=== PATIENT | male | born 1995 | race Caucasian/White ===

== ENCOUNTER 2024-07-11 00:34 | Inpatient (IN) | payer MEDICARE, SELFPAY ==
--- OUTSIDE RECORDS SUMMARY | 2024-07-11 00:38 | XMS_ITS | Encounter Summary ---
Author Organization [facility] Address [address] [place] [address] Care Team Providers Care Special Services Coordinator Name Role Phone Unavailable Primary Care Provider Unavailabl e Encounter Details Date Type Department Care Team (Late st Contact Info) Description 09/18/2023 Lab Requisition [address] [phone] Gabriella Dorantes MD [address] [place] [address] Schizophrenia, unspecified (HCC) Social History Tobacco Use Types Packs/Day Years Used Date Smoking Tobacco: Never Assessed Sex and Gender Information Value Date Recorded Sex Assigned at Not on file Legal Sex Male 11:24 AM EDT Gender Identity Not on file Sexual Orientation Not on file documented as of this encounter Plan of Treatment Not on file documented as of this encounter Procedures Procedure Name Priority Date/Time Associated Diagnosis Comments CLOZARIL PROFILE, WBC/SIMONA Routine 09/18/2023 6:53 AM EDT Schizophrenia, unspecified (HCC) documented in this encounter Results * Clozaril Profile, WBC/Simona (09/18/2023 6:53 AM EDT) WBC 8.0 4.8 - 11.2 10*3/??L 09/18/2023 10:21 AM EDT [facility] Neut # 4.5 2.2 - 9.5 10*3/??L 09/18/2023 10:21 AM EDT [facility] Neutrophils Absolute Count 4,500 1,200 - 8,500 mm3 09/18/2023 10:21 AM EDT [facility] Lym # 2.5 0.7 - 5.0 10*3/??L 09/18/2023 10:21 AM EDT [facility] [place] # 0.7 0.0 - 1.3 10*3/??L 09/18/2023 10:21 AM EDT [facility] Blood Venipuncture / Unknown 09/18/2023 6:53 AM EDT 09/18/2023 9:52 AM EDT us Gabriella Dorantes MD LAB BLOOD ORDERABLES Final Re sult [facility] [address] [place] [address] documented in this encounter Visit Diagnoses Diagnosis Schizophrenia, unspecified (HCC) documented in this encounter
--- OUTSIDE RECORDS SUMMARY | 2024-07-11 00:38 | XMS_ITS | Clinical Summary ---
Author Organization [facility] Address [address] [place] [address] Care Team Providers Care Front Elevator Operator Name Role Phone Reji Barclay MD Primary Care Provider [phone] Source Comments PLEASE NOTE, if this patient is a minor, it may be UNLAWFUL to discuss sensitive information that is contained in these records (such as FAMILY PLANNING, MENTAL HEALTH or SUBSTANCE ABUSE) with the minor patient's parent or other person without the patient's specific authorization.[facility] Allergies No known active allergies Medications omeprazole (PRILOSEC) [address] capsuleIndicati ons:Dyspepsia Take 1 Capsule by mouth every morning before breakfast 30 Capsule 1 2 Active acetaminophen (TYLENOL) 500 mg tabletIndicatio ns:Tension headache Take 1 Tablet by mouth every 6 (six) hours as needed for pain 120 Tablet 1 2 Active thiamine (VITAMIN B-1) 100 mg tabletIndicatio ns:Thiamine deficiency Take 1 Tablet by mouth once daily for 90 days 30 Tablet 2 3 Active risperiDONE (RISPERDAL) 3 mg tablet Take 1 Tablet by mouth once daily 30 Tablet 5 3 Active ibuprofen 600 mg tabletIndicatio ns:Tension headache Take 1 Tablet by mouth 3 (three) times daily as needed for pain 120 Tablet 1 3 Active Active Problems Problem Noted Date Diagnosed Date Routine general medical exam ination at a health care facility 10/02/2022 Other schizophrenia ([facility]) 10/02/2022 Assessment & Plan (10/02/2022 12:49 PM EDT): Here with mother, both pt and mother deny that pt has schizophrenia - I reviewed recent ED visit in August where note is made of pt's schizophrenia and auditory hallucinations - pt denies feeling thsi - mom denies he was even at ED - suspect pt had schizophrenic break in jan 2020 when pt hospitalized - mom thinks this was when they were doing medical experiemnts on him - mom does recognize that pt needs reisperidone 3 mg daily, is more fuctional on this med. Refill given - SW called for warm handoff for appt w psych for med mgmt and diagnosis. Ramírez came down and evaluated pt - reviewed CT brain recently urnemarkable - had normal labs in july 2022 except for B1, which was low. Will recheck, but advised to take thiamine dialy as prescribed by dr kelly, or take MVI Auditory hallucinations 07/12/2022 Assessment & Plan (07/12/2022 12:05 PM EDT): Unable to fully assess Pt's hallucinations but clearly responding to at least auditory internal stimuli during OV. Labs ordered to r/o medical causes for potential AMS/psychosis, and CT Head ordered to r/o intracranial etiology given change in mentation/hallucinations, and also 50lb weight loss. Recommend that Pt be seen in 2 days, to maintain follow-up, but will also set up Pt with for further evaluation. Pt does need Psychiatry involved as well, and potentially antipsychotics, will place referral. If Pt misses upcoming appointment, would recommend calling [facility] team for home visit as Pt is high risk for being lost to follow-up. Tension headache 10/10/2021 Assessment & Plan (10/10/2021 4:23 PM EDT): Pt's symptoms more likely tension headache than migraines given character. Will trial APAP/Ibuprofen combination, and escalate to Naproxen if persistent. Can refer to Neuro at f/up call/appt if Pt/MoP requests again, given history, but not necessary at this time. Dyspepsia 07/07/2021 Assessment & Plan (07/07/2021 2:44 PM EDT): Unclear etiology for Pt's GI symptoms. Collateral from aunt implies no drug use, but from Pt's mother implies that there may be THC on board. Would test urine tox at Pt's next visit, if Pt is amenable. H.pylori was negative. Referral placed for Urgent EGD to evaluate cause of vomiting immediately after eating and blood stools further. Will also f/up CBC for Hgb, given Pt's tiredness/slowedness and tachycardia. Pt otherwise asymptomatic however. Social History Tobacco Use Types Packs/Day Years Used Date Smoking Tobacco: Never Smokeless Tobacco: Never Alcohol Use Standard Drinks/Week Comments Never 0 (1 standard drink = 0.6 oz pur e alcohol) Social Connections Answer Date Recorded Connectedness 0 11/19/2023 Financial Resource Strain Answer Date R ecorded Financial Resource Strain 0 2021 Stress Answer Date Recorded Stress 0 07/04/2021 Physical Activity Answer Date Recorded Physical Activity 0 07/04/2021 Food Insecurity Answer Date Recorded Food 0 12/06/2023 Transportation Needs Answer Date Record ed Transportation 0 10/02/2022 Housing Stability Answer Date Recorded Housing 0 10/02/2022 Safety and Environment Answer Date Duran rded Safety 0 10/02/2022 Utilities Answer Date Recorded Utilities 0 07/04/2021 Employment Answer Date Recorded Stress 0 10/02/2022 Sex and Gender Information Value Date Recorded Sex Assigned at Not on file Legal Sex Male 6:55 AM PDT Gender Identity Not on file Sexual Orientation Not on file Last Filed Vital Signs Vital Sign Reading Time Taken Comments Blood Pressure 107/73 10/02/2022 11:25 AM EDT Pulse 78 10/02/2022 11:25 AM EDT Temperature 36.3 ??C (97.3 ??F) 10/02/2022 11:25 AM E DT Respiratory Rate - - Oxygen Saturation 97% 10/02/2022 11:25 AM EDT Inhaled Oxygen Concentration - - Weight 94.8 kg (209 lb) 10/02/2022 11:25 AM EDT Height 184 cm (6' 0.44 ) 10/02/2022 11:25 AM EDT Body Mass Index 28 10/02/2022 11:25 AM EDT Plan of Treatment Health Maintenance Due Date Last Done Comments Anxiety Screening 1994 Tobacco Screening 1994 HIV Screening 2009 Imm-Hepatitis B (1 of 3 - 19 + 3-dose series) 2013 Annual Preventive Care Visit 07/07/2022 07/07/2021 [id number] ( season) 2023 Imm-Influenza (#1) 2023 Alcohol and Drug Screen 03/12/2024 07/10/2022 Depression Annual Screen 03/12/2024 07/10/2022 Lipid Screening 03/31/2024 03/31/2023 Diabetes Screening 11/08/2024 11/09/2023, 0 08/10/2023, 07/11/2023, Additional history exists Hypertension Screening (#1) 10/01/2025 Imm-DTaP/Tdap/Td (2 - Td or Tdap) 11/12/2029 020 Hepatitis C Screening Completed 07/27/2020 Procedures Procedure Name Priority Date/Time Associated Diagnosis Comments HEMOGLOBIN GLYCOSYLATED A1C Routine 10/02/2022 12:30 PM EDT Auditory hallucinations from Last 3 Months or Most Recently Relevant to Health Maintenance Results * HEMOGLOBIN GLYCOSYLATED A1C (10/02/2022 12:30 PM EDT) HEMOGLOBIN A1C 5.0 4.0 - 6.0 % [facility] Comment: The Peng hemoglobin A1c assay should not be used to diagnose or monitor diabetes in patients with altered red cell lifespan, such as homozygous hemoglobin variants, Hb SC, HbF > 5%, and hemolytic anemia. Blood Blood / Unknown 10/02/2022 1 2:30 PM EDT 10/02/2022 12:45 PM EDT us Karuna Jaramillo MD LAB - BLOOD DRAW Final Result [facility] [address] [place] [address], from Last 3 Months or Most Recently Relevant to Health Maintenance Care Teams Front Elevator Operator Relationship Specialty Start Date End Date Reji Barclay MD [address] [place] [phone] PCP - General Family Medicine, Physician 02/26/23
--- OUTSIDE RECORDS SUMMARY | 2024-07-11 00:38 | XMS_ITS | Encounter Summary ---
Author Organization [facility] Address [address] [place] [address] Care Team Providers Care Financial Management Consultant Name Role Phone Unavailable Primary Care Provider Unavailabl e Encounter Details Date Type Department Care Team (Late st Contact Info) Description 10/09/2023 Lab Requisition [address] [phone] Gabriella Dorantes MD [address] [place] [address] Schizophrenia, unspecified (HCC) Social History Tobacco Use [...] Associated Diagnosis Comments CLOZARIL PROFILE, WBC/SIMONA Routine 10/09/2023 7:30 AM EDT Schizophrenia, unspecified (HCC) documented in this encounter Results * Clozaril Profile, WBC/Simona (10/09/2023 7:30 AM EDT) WBC 7.8 4.8 - 11.2 10*3/??L 10/09/2023 10:02 AM EDT [facility] Neut # 4.2 2.2 - 9.5 10*3/??L 10/09/2023 10:02 AM EDT [facility] Neutrophils Absolute Count 4,200 1,200 - 8,500 mm3 10/09/2023 10:02 AM EDT [facility] Lym # 2.5 0.7 - 5.0 10*3/??L 10/09/2023 10:02 AM EDT [facility] [place] # 0.8 0.0 - 1.3 10*3/??L 10/09/2023 10:02 AM EDT [facility] Blood 10/09/2023 7:30 AM EDT 10/09/2023 9:41 AM EDT us Gabriella Dorantes MD LAB BLOOD ORDERABLES Final Re sult [facility] [address] [place] [address] documented in this encounter Visit Diagnoses Diagnosis Schizophrenia, unspecified (HCC) documented in this encounter
--- OUTSIDE RECORDS SUMMARY | 2024-07-11 00:38 | XMS_ITS | Encounter Summary ---
Author Organization [facility] Address [address] [place] [address] Care Team Providers Care Door Furring Installer Name Role Phone Unavailable Primary Care Provider Unavailabl e Encounter Details Date Type Department Care Team (Late st Contact Info) Description 09/11/2023 Lab Requisition [address] [phone] Kirby Florence NP [address] [place] [address] Schizophrenia, unspecified (HCC) Social History Tobacco Use [...] Procedure Name Priority Date/Time Associated Diagnosis Comments CLOZAPINE + METABOLITE LEVEL Routine 09/11/2023 6:55 AM EDT Schizophrenia, unspecified (HCC) documented in this encounter Results * Clozapine + Metabolite Level (09/11/2023 6:55 AM EDT) Norclozapine 171 25 - 400 mcg/L 09/16/2023 12:48 AM EDT [facility] Clozapine 431 mcg/L 09/16/2023 12:48 AM EDT [facility] Comment: The therapeutic response begins to appear at 100 mcg/L. Refractory schizophrenia appears to require a therapeutic concentration of at least 350 mcg/L (trough, at steady state). Toxic range: Greater than 900 mcg/L This test was developed and its analytical performance characteristics have been determined by [facility] [place], [place]. It has not been cleared or approved by the U.S. Food and Drug Administration. This assay has been validated pursuant to the CLIA regulations and is used for clinical purposes. Blood Venipuncture / Unknown 09/11/2023 6:55 AM EDT 09/11/2023 9:49 AM EDT Narrative [facility] - 09/16/2023 12:48 AM EDT Performing Organization Information: ?Site ID: [id number] ?Name: [facility] ?Address: [address] [place] [address] [place], [place] ?Director: Patrick Ramirez M.D.,PhD Kirby Florence NP LAB BLOOD ORDERABLES Final Resul t [facility] [address] [place] [address] documented in this encounter Visit Diagnoses Diagnosis Schizophrenia, unspecified (HCC) documented in this encounter
--- OUTSIDE RECORDS SUMMARY | 2024-07-11 00:38 | XMS_ITS | Encounter Summary ---
Author Organization [facility] Address [address] [place] [address] Care Team Providers Care Machine Pan Greaser Name Role Phone Unavailable Primary Care Provider Unavailabl e Encounter Details Date Type Department Care Team (Late st Contact Info) Description 08/21/2023 Lab Requisition [address] [phone] Gabriella Dorantes MD [address] [place] [address] Schizophrenia, unspecified (HCC) Social History Tobacco Use [...] Procedure Name Priority Date/Time Associated Diagnosis Comments CBC AND AUTO DIFF CLOZARIL PT Routine 08/21/2023 11:50 AM EDT Schizophrenia, unspecified (HCC) documented in this encounter Results * CBC and Auto Differential, Clozaril Pt (08/21/2023 11:50 AM EDT) WBC 6.7 4.8 - 11.2 10*3/??L 08/21/2023 12:55 PM EDT [facility] RBC 4.76 4.00 - 5.90 10*6/??L 08/21/2023 12:55 PM EDT [facility] HGB 14.6 14.0 - 17.2 g/dL 08/21/2023 12:55 PM EDT [facility] HCT 42.8 40.0 - 52.0 % 08/21/2023 12:55 PM EDT [facility] MCV 90.0 82.0 - 98.0 fL 08/21/2023 12:55 PM EDT [facility] MCH 30.7 27.0 - 35.0 pg 08/21/2023 12:55 PM EDT [facility] MCHC 34.1 32.0 - 37.0 g/dL 08/21/2023 12:55 PM EDT [facility] RDW 13.0 12.0 - 15.0 % 08/21/2023 12:55 PM EDT [facility] PLT 214 150 - 400 10*3/??L 08/21/2023 12:55 PM EDT [facility] MPV 8.8 7.0 - 14.0 fL 08/21/2023 12:55 PM EDT [facility] Neut % 67.0 45.0 - 85.0 % 08/21/2023 12:55 PM EDT [facility] Lymph % 23.9 15.0 - 45.0 % 08/21/2023 12:55 PM EDT [facility] [place] % 7.6 0.0 - 12.0 % 08/21/2023 12:55 PM EDT [facility] Eos % 1.1 0.0 - 7.0 % 08/21/2023 12:55 PM EDT [facility] Baso % 0.4 0.0 - 3.0 % 08/21/2023 12:55 PM EDT [facility] Neut # 4.5 2.2 - 9.5 10*3/??L 08/21/2023 12:55 PM EDT [facility] Neutrophils Absolute Count 4,500 1,200 - 8,500 mm3 08/21/2023 12:55 PM EDT [facility] Lym # 1.6 0.7 - 5.0 10*3/??L 08/21/2023 12:55 PM EDT [facility] [place] # 0.5 0.0 - 1.3 10*3/??L 08/21/2023 12:55 PM EDT [facility] Eos # 0.1 0.0 - 0.4 10*3/??L 08/21/2023 12:55 PM EDT [facility] Baso # 0.0 0.0 - 0.3 10*3/??L 08/21/2023 12:55 PM EDT [facility] NRBC% 0 0 /100 WBC /100 WBC 08/21/2023 12:55 PM EDT [facility] Blood 08/21/2023 11:5 0 AM EDT 08/21/2023 12:50 PM EDT us Gabriella Dorantes MD LAB BLOOD ORDERABLES Final Re sult [facility] [address] [place] [address] documented in this encounter Visit Diagnoses Diagnosis Schizophrenia, unspecified (HCC) documented in this encounter
--- OUTSIDE RECORDS SUMMARY | 2024-07-11 00:38 | XMS_ITS | Encounter Summary ---
Author Organization [facility] Address [address] [place] [address] Care Team Providers Care Men'S Basketball Coach Name Role Phone Unavailable Primary Care Provider Unavailabl e Encounter Details Date Type Department Care Team (Late st Contact Info) Description 08/28/2023 Lab Requisition [address] [phone] Gabriella Dorantes MD [address] [place] [address] Schizophrenia, unspecified (HCC) Social History Tobacco Use [...] Associated Diagnosis Comments CLOZARIL PROFILE, WBC/SIMONA Routine 08/28/2023 8:00 AM EDT Schizophrenia, unspecified (HCC) documented in this encounter Results * Clozaril Profile, WBC/Simona (08/28/2023 8:00 AM EDT) WBC 7.4 4.8 - 11.2 10*3/??L 08/28/2023 11:10 AM EDT [facility] Neut # 4.0 2.2 - 9.5 10*3/??L 08/28/2023 11:10 AM EDT [facility] Neutrophils Absolute Count 4,000 1,200 - 8,500 mm3 08/28/2023 11:10 AM EDT [facility] Lym # 2.5 0.7 - 5.0 10*3/??L 08/28/2023 11:10 AM EDT [facility] [place] # 0.7 0.0 - 1.3 10*3/??L 08/28/2023 11:10 AM EDT [facility] Blood 08/28/2023 8:00 AM EDT 08/28/2023 10:08 AM EDT us Gabriella Dorantes MD LAB BLOOD ORDERABLES Final Re sult [facility] [address] [place] [address] documented in this encounter Visit Diagnoses Diagnosis Schizophrenia, unspecified (HCC) documented in this encounter
--- OUTSIDE RECORDS SUMMARY | 2024-07-11 00:38 | XMS_ITS | Encounter Summary ---
Author Organization [facility] Address [address] [place] [address] Care Team Providers Care Forest Worker Name Role Phone Unavailable Primary Care Provider Unavailabl e Encounter Details Date Type Department Care Team (Late st Contact Info) Description 08/23/2023 Lab Requisition [address] [phone] Gabriella Dorantes MD [address] [place] [address] Schizophrenia, unspecified (HCC) Social History Tobacco Use [...] Date/Time Associated Diagnosis Comments CBC AND AUTO DIFFERENTIAL Routine 08/23/2023 7:40 AM EDT Schizophrenia, unspecified (HCC) documented in this encounter Results * (ABNORMAL) CBC and Auto Differential (08/23/2023 7:40 AM EDT) WBC 8.7 4.8 - 11.2 10*3/??L 08/23/2023 11:14 AM EDT [facility] RBC 4.34 4.00 - 5.90 10*6/??L 08/23/2023 11:14 AM EDT [facility] HGB 13.5(L) 14.0 - 17.2 g/dL 08/23/2023 11:14 AM EDT [facility] HCT 39.3(L) 40.0 - 52.0 % 08/23/2023 11:14 AM EDT [facility] MCV 90.6 82.0 - 98.0 fL 08/23/2023 11:14 AM EDT [facility] MCH 31.0 27.0 - 35.0 pg 08/23/2023 11:14 AM EDT [facility] MCHC 34.3 32.0 - 37.0 g/dL 08/23/2023 11:14 AM EDT [facility] RDW 13.3 12.0 - 15.0 % 08/23/2023 11:14 AM EDT [facility] PLT 206 150 - 400 10*3/??L 08/23/2023 11:14 AM EDT [facility] MPV 9.0 7.0 - 14.0 fL 08/23/2023 11:14 AM EDT [facility] Neut % 62.6 45.0 - 85.0 % 08/23/2023 11:14 AM EDT [facility] Lymph % 25.4 15.0 - 45.0 % 08/23/2023 11:14 AM EDT [facility] [place] % 9.6 0.0 - 12.0 % 08/23/2023 11:14 AM EDT [facility] Eos % 2.1 0.0 - 7.0 % 08/23/2023 11:14 AM EDT [facility] Baso % 0.3 0.0 - 3.0 % 08/23/2023 11:14 AM EDT [facility] NRBC% 0 0 /100 WBC /100 WBC 08/23/2023 11:14 AM EDT [facility] Neut # 5.5 2.2 - 9.5 10*3/??L 08/23/2023 11:14 AM EDT [facility] Lym # 2.2 0.7 - 5.0 10*3/??L 08/23/2023 11:14 AM EDT [facility] [place] # 0.8 0.0 - 1.3 10*3/??L 08/23/2023 11:14 AM EDT [facility] Eos # 0.2 0.0 - 0.4 10*3/??L 08/23/2023 11:14 AM EDT [facility] Baso # 0.0 0.0 - 0.3 10*3/??L 08/23/2023 11:14 AM EDT [facility] Blood Venipuncture / Unknown 08/23/2023 7:40 AM EDT 08/23/2023 9:41 AM EDT us Gabriella Dorantes MD LAB BLOOD ORDERABLES Final Re sult [facility] [address] [place] [address] documented in this encounter Visit Diagnoses Diagnosis Schizophrenia, unspecified (HCC) documented in this encounter
--- OUTSIDE RECORDS SUMMARY | 2024-07-11 00:38 | XMS_ITS | Encounter Summary ---
Author Organization [facility] Address [address] [place] [address] Care Team Providers Care Arcade Game Technician Name Role Phone Unavailable Primary Care Provider Unavailabl e Encounter Details Date Type Department Care Team (Late st Contact Info) Description 09/06/2023 Lab Requisition [address] [phone] Gabriella Dorantes MD [address] [place] [address] Schizophrenia, unspecified (HCC) Social History Tobacco Use [...] Associated Diagnosis Comments CLOZARIL PROFILE, WBC/SIMONA Routine 09/06/2023 7:17 AM EDT Schizophrenia, unspecified (HCC) documented in this encounter Results * Clozaril Profile, WBC/Simona (09/06/2023 7:17 AM EDT) WBC 8.6 4.8 - 11.2 10*3/??L 09/06/2023 9:10 AM EDT [facility] Neut # 5.0 2.2 - 9.5 10*3/??L 09/06/2023 9:10 AM EDT [facility] Neutrophils Absolute Count 5,000 1,200 - 8,500 mm3 09/06/2023 9:10 AM EDT [facility] Lym # 2.5 0.7 - 5.0 10*3/??L 09/06/2023 9:10 AM EDT [facility] [place] # 0.7 0.0 - 1.3 10*3/??L 09/06/2023 9:10 AM EDT [facility] Blood Venipuncture / Unknown 09/06/2023 7:17 AM EDT 09/06/2023 8:52 AM EDT us Gabriella Dorantes MD LAB BLOOD ORDERABLES Final Re sult [facility] [address] [facility] [place] [address] documented in this encounter Visit Diagnoses Diagnosis Schizophrenia, unspecified (HCC) documented in this encounter
--- OUTSIDE RECORDS SUMMARY | 2024-07-11 00:38 | XMS_ITS | Encounter Summary ---
Author Organization [facility] Address [address] [place] [address] Care Team Providers Care Crime Scene Investigator Name Role Phone Unavailable Primary Care Provider Unavailabl e Encounter Details Date Type Department Care Team (Late st Contact Info) Description 08/21/2023 Lab Requisition [address] [phone] Gabriella Dorantes MD [address] [place] [address] Schizophrenia, unspecified (HCC) Social History Tobacco Use Types Packs/Day Years Used Date Smoking Tobacco: Never Assessed Sex and Gender Information Value Date Recorded Sex Assigned at Not on file Legal Sex Male 11:24 AM EDT Gender Identity Not on file Sexual Orientation Not on file documented as of this encounter Plan of Treatment Scheduled Orders Name Type Priority Associated Diagnoses Orde r Schedule CBC and Auto Differential, Clozaril Pt Lab STAT Schizophrenia, unspecified (HCC) Ordered: 08/21/2023 documented as of this encounter Visit Diagnoses Diagnosis Schizophrenia, unspecified (HCC) documented in this encounter
--- OUTSIDE RECORDS SUMMARY | 2024-07-11 00:38 | XMS_ITS | Encounter Summary ---
Author Organization [facility] Address [address] [place] [address] Care Team Providers Care Wholesale Diamond Broker Name Role Phone Unavailable Primary Care Provider Unavailabl e Encounter Details Date Type Department Care Team (Late st Contact Info) Description 09/11/2023 Lab Requisition [address] [phone] Gabriella Dorantes MD [address] [place] [address] Schizophrenia, unspecified (HCC) Social History Tobacco Use [...] Associated Diagnosis Comments CLOZARIL PROFILE, WBC/SIMONA Routine 09/11/2023 6:55 AM EDT Schizophrenia, unspecified (HCC) documented in this encounter Results * Clozaril Profile, WBC/Simona (09/11/2023 6:55 AM EDT) WBC 7.6 4.8 - 11.2 10*3/??L 09/11/2023 10:10 AM EDT [facility] Neut # 4.5 2.2 - 9.5 10*3/??L 09/11/2023 10:10 AM EDT [facility] Neutrophils Absolute Count 4,500 1,200 - 8,500 mm3 09/11/2023 10:10 AM EDT [facility] Lym # 2.1 0.7 - 5.0 10*3/??L 09/11/2023 10:10 AM EDT [facility] Swift # 0.6 0.0 - 1.3 10*3/??L 09/11/2023 10:10 AM EDT [facility] Blood Venipuncture / Unknown 09/11/2023 6:55 AM EDT 09/11/2023 9:49 AM EDT us Gabriella Dorantes MD LAB BLOOD ORDERABLES Final Re sult [facility] [address] [place] [address] documented in this encounter Visit Diagnoses Diagnosis Schizophrenia, unspecified (HCC) documented in this encounter
--- OUTSIDE RECORDS SUMMARY | 2024-07-11 00:38 | XMS_ITS | Encounter Summary ---
Author Organization [facility] Address [address] [place] [address] Care Team Providers Care Principal Mechanical Engineer Name Role Phone Unavailable Primary Care Provider Unavailabl e Encounter Details Date Type Department Care Team (Late st Contact Info) Description 09/25/2023 Lab Requisition [address] [phone] Gabriella Dorantes MD [address] [place] [address] Schizophrenia, unspecified (HCC) Social History Tobacco Use [...] Associated Diagnosis Comments CLOZARIL PROFILE, WBC/SIMONA Routine 09/25/2023 6:58 AM EDT Schizophrenia, unspecified (HCC) documented in this encounter Results * Clozaril Profile, WBC/Simona (09/25/2023 6:58 AM EDT) WBC 6.9 4.8 - 11.2 10*3/??L 09/25/2023 9:03 AM EDT [facility] Neut # 3.4 2.2 - 9.5 10*3/??L 09/25/2023 9:03 AM EDT [facility] Neutrophils Absolute Count 3,400 1,200 - 8,500 mm3 09/25/2023 9:03 AM EDT [facility] Lym # 2.6 0.7 - 5.0 10*3/??L 09/25/2023 9:03 AM EDT [facility] [place] # 0.6 0.0 - 1.3 10*3/??L 09/25/2023 9:03 AM EDT [facility] Blood Venipuncture / Unknown 09/25/2023 6:58 AM EDT 09/25/2023 8:55 AM EDT us Gabriella Dorantes MD LAB BLOOD ORDERABLES Final Re sult [facility] [address] [place] [address] documented in this encounter Visit Diagnoses Diagnosis Schizophrenia, unspecified (HCC) documented in this encounter
--- OUTSIDE RECORDS SUMMARY | 2024-07-11 00:38 | XMS_ITS | Encounter Summary ---
Author Organization [facility] Address [address] [place] [address] Care Team Providers Care Statistical Clerk Name Role Phone Unavailable Primary Care Provider Unavailabl e Encounter Details Date Type Department Care Team (Late st Contact Info) Description 09/28/20[address] Lab Re[address] [phone] Gabriella Dorantes MD [address] [place] [address] Schizophrenia, unspecified (HCC) Social History Tobacco Use [...] Diagnosis Comments CLOZAPINE + METABOLITE LEVEL Routine 09/28/2023 8:00 AM EDT Schizophrenia, unspecified (HCC) documented in this encounter Results * Clozapine + Metabolite Level (09/28/2023 8:00 AM EDT) Norclozapine 210 25 - 400 mcg/L 10/03/2023 4:03 AM EDT [facility] Clozapine 527 mcg/L 10/03/2023 4:03 AM EDT [facility] Comment: The therapeutic response begins to appear at 100 mcg/L. Refractory schizophrenia appears to require a therapeutic concentration of at least 350 mcg/L (trough, at steady state). Toxic range: Greater than 900 mcg/L This test was developed and its analytical performance characteristics have been determined by [facility] [place]. It has not been cleared or approved by the U.S. Food and Drug Administration. This assay has been validated pursuant to the CLIA regulations and is used for clinical purposes. Blood Venipuncture / Unknown 09/28/2023 8:00 AM EDT 09/28/2023 9:46 AM EDT Narrative [facility] - 10/03/2023 4:03 AM EDT Performing Organization Information: ?Site ID: [id number] ?Name: [facility] ?Address: [address] [place] [address] [place] ?Director: Patrick Ramirez M.D.,PhD Gabriella Dorantes MD LAB BLOOD ORDERABLES Final Re sult [facility] [address] [place] [address] documented in this encounter Visit Diagnoses Diagnosis Schizophrenia, unspecified (HCC) documented in this encounter
--- OUTSIDE RECORDS SUMMARY | 2024-07-11 00:38 | XMS_ITS | Clinical Summary ---
Author Organization [facility] Address [address] [place] [address] Care Team Providers Care Parlor Maid Name Role Phone Unavailable Primary Care Provider Unavailabl e Social History Tobacco Use Types Packs/Day Years Used Date Smoking Tobacco: Never Assessed Sex and Gender Information Value Date Recorded Sex Assigned at Not on file Legal Sex Male 11:24 AM EDT Gender Identity Not on file Sexual Orientation Not on file Plan of Treatment Not on file
[2024-07-11 00:55] VITALS: BP 142/89; PULSE 87; RESP 18; TEMP 36.4; O2SAT 97
[2024-07-11 01:09] VITALS: BMI 32.0
[2024-07-11] MEDS: LORazepam 1 MG TABLET PO ×3 (01:28→15:18)
[2024-07-11] MEDS: traZODone HCL 50 MG TABLET PO (01:28)
[2024-07-11] MEDS: hydrOXYzine HCL 25 MG TABLET PO (01:28)
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
[2024-07-11 07:20] VITALS: BP 89/54; PULSE 58; RESP 14; TEMP 36.4; O2SAT 98
[2024-07-11 08:07] VITALS: BP 89/54; PULSE 58; RESP 14; TEMP 36.4; O2SAT 98
--- NOTE | 2024-07-11 08:34 | HO.PSYADMNOT ---
HPI Date of Service: 07/11/24 Chief Complaint: Unspecified Psychosis HPI Narrative: on attempted interview, pt was very somnolent. he stated he would come out in ten minutes to meet with MD but never appeared. the history herein contained was garnered from OSH documents. per OSH records, pt with h/o catatonia, TBI, PTSD presented due to concern for episode with catatonic features. pt was BIB police after having been found wandering the streets. EMS reported that a concerned bystander called 911. EMS stated that pt threw himself in the street and stated he wanted to . h/o catatonia effectively treated with ativan. reportedly schizophrenia Dx and numerous anti-psychotic trials. pt was described as near catatonic in the OSH ED, as well as responding to internal stimuli. he was suspected of not recently taking his psychiatric medications. labs at OSH were reported to be overall without concerning abnormalities. CK not elevated, serum tox screen NEG. utox collected but not reported. Past Psychiatric History: reportedly experiencing psychosis as of 07/26/2020. h/o TBI 07/12/2016. hosps: h/o at least one prior hosp SA: unknown SIB: unknown outpt: unknown Medical Evaluation Reviewed: Hospitalist Bárbaraal Pending [facility] Narrative: HTN s/p TBI 07/12/2016 dyspepsia Family History: no documented mental health or substance use disorder FH Social History: single, never , no children. lives in [place] with mother and aunt. completed 2 years at [employer]. not employed. heterosexual. Substance History: has denied nicotine and alcohol use. h/o social drinking prior to TBI in July of 2016. has reported no other drug use. Trauma History: unknown Diagnostics Vital Signs (24Hr): Vital Signs - 24 hr 07/11/24 00:55 07/11/24 07:20 07/11/24 08:07 Temperature 97.5 F 97.6 F 97.6 F Pulse Rate 87 58 58 Respiratory Rate 18 14 14 Blood Pressure 142/89 H 89/54 L 89/54 L Pulse Oximetry 97 98 98 Oxygen Delivery Method Room Air Room Air Room Air BMI result Body Mass Index 32.0 Meds/Allergies Meds Home Medications ?Medication ?Instructions ?Recorded ?Confirmed ?Type erenumab-aooe 70 mg/mL 70 mg subcut QMONTH 07/11/24 07/11/24 History subcutaneous auto-injector (Aimovig Autoinjector) tirzepatide (weight loss) 2.5 2.5 mg subcut QWEEK 07/11/24 07/11/24 History mg/0.5 mL subcutaneous solution (Zepbound) Allergies Allergies Allergy/AdvReac Type Severity Reaction Status Date / Time mold Allergy Unknown Unknown Verified 07/10/24 20:47 amoxicillin AdvReac Severe Diarrhea Verified 07/10/24 20:47 cat hair Allergy Unknown Unknown Uncoded 07/10/24 20:47 Mental Status Exam Mental Status Exam Narrative: obese, somnolent. lying in bed, rousable to loud voice. unable to rouse self for interview. Assessment & Plan Assessment & Plan (1) Psychotic disorder: Status: Acute Code(s): F29 - Unspecified psychosis not due to a substance or known physiological condition Plan continue ativan 1 TID for now. attempt proper medication reconciliation. collect collateral from family. Patient educated on: other Reason for continued inpatient stay Substantial Risk for: harm to self and inability to function Statement Statement: I have reviewed the history and physical and performed a pertinent examination on my patient. No changes have occurred unless specified. If the History and Physical was not performed prior to admission, the Hospitalist's service will be consulted for completing the admission physical. Time Spent With Patient Time: Total time managing care of this patient today __55__ minutes.
--- NOTE | 2024-07-11 08:47 | HO.PM.IMCN ---
History of Present Illness Data of Consult Service Date: 07/11/24 Primary Care Provider: Unknown Physician HPI Reason for consult: Admission H&P Pt is a 29-year-old male with a PMH significant for HTN, TBI, catatonia, and schizophrenia who is admitted to [facility] psychiatry unit for altered mental status and acute psychosis. Pt was brought to [facility] ED by police on a [address] after apparently throwing himself into a street and stating that he wished to . Was semi-catatonic upon arrival to the ED. Pt has had a complex psychological hx including cognitive and behavioral changes such as inattention, psychomotor slowing, and memory loss. Medical consult for admission H&P. ?Pt seen and evaluated in his room where he is found resting comfortably in his bed, sleeping on his side and snoring loudly. Pt is somnolent but arousable, answering questions appropriately but minimally engaged. Pt denies any acute medical complaints. No SOB or difficulty breathing. Denies N/V/D or abdominal pain. No chest pain/pressure or palpitaitons. Vitals reviewed, significant for soft BP. Initially hypertensive at 142/89 upon arrival, this morning 89/54. Labs from [facility] reviewed, overall grossly unremarkable. Review of Systems Review of Systems: Pt denies any acute medical complaints at this time. [facility] Social History Household Members: Other Household Members Other:: Mother and Aunt Housing: House Do you presently have visiting nurse or other home services: No Patient Tobacco Use Status: Never used Tobacco Use of substances other than those prescribed or required for medical reasons: No Currently Displaying Signs/Symptoms of Drug Intoxication Withdrawal: No Do you feel safe in your current relationship?: No Current Relationship Advance Directives: No Advance Directives Information Provided: No Do you have thoughts of harming others: None Do you have a plan to hurt others: No Plan Recently lost weight without trying: Unsure How much weight loss: Unsure Nutrition Risks: No Nutritional Risk Meds Allergies Allergy/AdvReac Type Severity Reaction Status Date / Time mold Allergy Unknown Unknown Verified 07/10/24 20:47 amoxicillin AdvReac Severe Diarrhea Verified 07/10/24 20:47 cat hair Allergy Unknown Unknown Uncoded 07/10/24 20:47 Active Medications: Current Medications Acetaminophen (Acetaminophen 325 Mg Tablet) 650 mg PO Q6H PRN PRN Reason: Headache/Pain, Scale 1-10 Al Hydroxide/Mg Hydroxide (Magnesium Hydrox/Alum Hydrox 30 Ml Oral.Susp) 30 ml PO Q6H PRN PRN Reason: Heartburn/Nausea Hydroxyzine HCl (Hydroxyzine Hcl 25 Mg Tablet) 25 mg PO Q6H PRN PRN Reason: mild anxiety Last Admin: 07/11/24 01:28 Dose: 25 mg Lorazepam (Lorazepam 1 Mg Tablet) 1 mg PO Q4H PRN PRN Reason: catatonia, agitation Last Admin: 07/11/24 01:28 Dose: 1 mg Lorazepam (Lorazepam 1 Mg Tablet) 1 mg PO TID ELAN Magnesium Hydroxide (Milk Of Magnesia 30 Ml Oral.Susp) 30 ml PO DAILY PRN PRN Reason: Constipation Nicotine Polacrilex (Nicotine Polacrilex 2 Mg Gum) 4 mg BUCCAL Q2H PRN PRN Reason: Nicotine Cravings Trazodone HCl (Trazodone Hcl 50 Mg Tablet) 50 mg PO BEDTIME MRX1 PRN PRN Reason: Insomnia Last Admin: 07/11/24 01:28 Dose: 50 mg Home Medications ?Medication ?Instructions ?Recorded ?Confirmed ?Last Taken ?Type erenumab-aooe 70 mg/mL 70 mg subcut QMONTH 07/11/24 07/11/24 Unknown History subcutaneous auto-injector (Aimovig Autoinjector) tirzepatide (weight loss) 2.5 2.5 mg subcut QWEEK 07/11/24 07/11/24 Unknown History mg/0.5 mL subcutaneous solution (Zepbound) Physical Exam Vital Signs and Narrative: Vital Signs: Last Vital Signs Temp 97.6 F 07/11/24 08:07 Pulse 58 07/11/24 08:07 Resp 14 07/11/24 08:07 BP 89/54 L 07/11/24 08:07 Pulse Ox 98 07/11/24 08:07 O2 Del Method Room Air 07/11/24 08:07 BMI result Body Mass Index 32.0 General: AOx3, somnolent but arousable. A no acute distress Resp: CTA bilaterally CVS: S1, S2, RRR GI: +BS, NT, no distention Skin: Warm, dry Neuro: Cranial nerves II-XII grossly intact bilaterally. Motor grossly intact bilaterally Extremities: No edema Psych: Calm and most cooperative, but minimal engament Assessment and Plan (1) Medical clearance for psychiatric admission: Status: Acute Plan Pt is a 29-year-old male with a PMH significant for HTN, TBI, catatonia, and schizophrenia who is admitted to [facility] psychiatry unit for altered mental status and acute psychosis. Pt was brought to [facility] ED by police on a [address] after apparently throwing himself into a street and stating that he wished to . Was semi-catatonic upon arrival to the ED. Pt has had a complex psychological hx including cognitive and behavioral changes such as inattention, psychomotor slowing, and memory loss. Medical consult for admission H&P. ? Mood disorder Plan as per psychiatry HTN Pt apparently carries a diagnosis of HTN but BP has most recently been soft Not on anti hypertensives Monitor BP Pt otherwise does not appear to have any acute medical complaints or chronic medical conditions. Will sign off for now. Thank you for allowing us to participate in the care of this pt. Please reconsult if any acute issue or need arises.
[2024-07-11 14:49] LABS: Estimated Average Glucose 97 mg/dL; Hemoglobin A1C 110.3356 umol/L
[2024-07-11 15:02] LABS: Cholesterol 122 mg/dL (<200); HDL Cholesterol 22 mg/dL (>40); LDL Cholesterol Calculated 69 mg/dL (<100); Magnesium 2.1 mg/dL (1.6-2.6); Triglycerides 159 mg/dL (<150)
[2024-07-11 15:19] LABS: Free T4 (Free Thyroxine) 1.16 ng/dL (0.71-1.85); Thyroid Stimulating Hormone 0.96 uIU/mL (0.32-4.0)
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
[2024-07-11 18:27] LABS: Folate 6.6 ng/mL (> or = 4.0); Vitamin B12 311 pg/mL (200-900)
[2024-07-11 20:00] VITALS: BP 106/57; PULSE 82; RESP 16; TEMP 36.1; O2SAT 96
[2024-07-12 07:59] VITALS: BP 105/61; PULSE 69; RESP 16; TEMP 36.6; O2SAT 96
--- NOTE | 2024-07-12 19:42 | P.PNPSI_ITS ---
Subjective Subjective Date of Service: 07/12/24 Reason For Visit: Unspecified Psychosis Interim History: sleeping, rousable. linear, logical in interaction. reports mood not so bad and denies SA/SIB/HI/AVH. does not believe he has mental illness or needs medications. agrees to watchful waiting approach. per staff, snoring a lot. up for meals only. MARTINA, doesn't use CPAP. up eves. writing in his journal. some minimal responses. slept 6 hours overnight and a lot during the day. Mental Status Exam Mental Status Exam Narrative: obese, somnolent. lying in bed, rousable to loud voice. adequately dressed and groomed. cooperative. speech nml rate, amount, loudness, tone, latency. thoughts linear and logical. affect constricted, normo-intense, non-labile. mood not so bad. denies SI/SIBI/HI/AVH. Diagnostics Vital Signs (24Hr): Vital Signs - 24 hr 07/11/24 20:00 07/12/24 07:59 Temperature 97 F 97.8 F Pulse Rate 82 69 Respiratory Rate 16 16 Blood Pressure 106/57 L 105/61 Pulse Oximetry 96 96 Oxygen Delivery Method Room Air Room Air BMI result Body Mass Index 32.0 Labs Labs: Laboratory Results - last 48 hr 07/11/24 07/11/24 10:51 14:20 Estimat Average Glucose 97 Hemoglobin A1c % 5.0 Magnesium 2.1 Triglycerides 159 H Cholesterol 122 LDL Cholesterol, Calc 69 HDL Cholesterol 22 L Vitamin B12 311 Folate 6.6 TSH 0.96 Free T4 1.16 Medications Medications Current Medications Acetaminophen (Acetaminophen 325 Mg Tablet) 650 mg PO Q6H PRN PRN Reason: Headache/Pain, Scale 1-10 Al Hydroxide/Mg Hydroxide (Magnesium Hydrox/Alum Hydrox 30 Ml Oral.Susp) 30 ml PO Q6H PRN PRN Reason: Heartburn/Nausea Hydroxyzine HCl (Hydroxyzine Hcl 25 Mg Tablet) 25 mg PO Q6H PRN PRN Reason: mild anxiety Last Admin: 07/11/24 01:28 Dose: 25 mg Lorazepam (Lorazepam 1 Mg Tablet) 1 mg PO Q4H PRN PRN Reason: catatonia, agitation Last Admin: 07/11/24 01:28 Dose: 1 mg Lorazepam (Lorazepam 1 Mg Tablet) 1 mg PO TID ELAN Last Admin: 07/11/24 15:18 Dose: 1 mg Magnesium Hydroxide (Milk Of Magnesia 30 Ml Oral.Susp) 30 ml PO DAILY PRN PRN Reason: Constipation Nicotine Polacrilex (Nicotine Polacrilex 2 Mg Gum) 4 mg BUCCAL Q2H PRN PRN Reason: Nicotine Cravings Trazodone HCl (Trazodone Hcl 50 Mg Tablet) 50 mg PO BEDTIME MRX1 PRN PRN Reason: Insomnia Last Admin: 07/11/24 01:28 Dose: 50 mg Allergies Allergies Allergy/AdvReac Type Severity Reaction Status Date / Time mold Allergy Unknown Unknown Verified 07/10/24 20:47 amoxicillin AdvReac Severe Diarrhea Verified 07/10/24 20:47 cat hair Allergy Unknown Unknown Uncoded 07/10/24 20:47 Assessment & Plan Assessment & Plan (1) Medical clearance for psychiatric admission: Status: Acute Code(s): Z00.8 - Encounter for other general examination Assessment and Plan: Pt is a 29-year-old male with a PMH significant for HTN, TBI, catatonia, and schizophrenia who is admitted to [facility]3 psychiatry unit for altered mental status and acute psychosis. Pt was brought to [facility] ED by police on a [address] after apparently throwing himself into a street and stating that he wished to . Was semi-catatonic upon arrival to the ED. Pt has had a complex psychological hx including cognitive and behavioral changes such as inattention, psychomotor slowing, and memory loss. Medical consult for admission H&P. ? Mood disorder Plan as per psychiatry HTN Pt apparently carries a diagnosis of HTN but BP has most recently been soft Not on anti hypertensives Monitor BP Pt otherwise does not appear to have any acute medical complaints or chronic medical conditions. Will sign off for now. Thank you for allowing us to participate in the care of this pt. Please reconsult if any acute issue or need arises. (2) Psychotic disorder: Status: Acute Code(s): F29 - Unspecified psychosis not due to a substance or known physiological condition Plan 07/11: continue ativan 1 TID for now. attempt proper medication reconciliation. collect collateral from family. 07/12: ativan stopped due to sedation. more active last night and today. denies any mood concerns or SI. somnolent but not catatonic. amenable to neuro consult. acknowledges hypersomnia. Reason for continued inpatient stay Substantial Risk for: inability to function and rapid decompensation Time Spent With Patient Time: Total time managing care of this patient today __25__ minutes.
[2024-07-12 20:15] VITALS: BP 126/80; PULSE 80; RESP 16; TEMP 36.8; O2SAT 95
[2024-07-13 07:52] VITALS: BP 125/70; PULSE 77; RESP 18; TEMP 37.1; O2SAT 95
[2024-07-13] MEDS: chlorproMAZINE HCl 25 MG TABLET 50 MG PO (10:34)
[2024-07-13] MEDS: LORazepam 1 MG TABLET PO (10:34)
[2024-07-13] MEDS: risperiDONE 2 MG TABLET PO ×2 (10:35→21:19)
--- NOTE | 2024-07-13 11:50 | PC.NURSE ---
Pt's aunt Flaquita called and was upset that no one reached out to her as she's his HCP. RN informed her that there wasn't paperwork in his chart and provided her the fax number to send it. Flaquita requested a call back from provider, Dr. Haji aware,her contact information is [phone]
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
[2024-07-13 20:15] VITALS: BP 106/51; PULSE 71; RESP 18; TEMP 36.8; O2SAT 95
[2024-07-14 09:37] VITALS: BP 95/61; PULSE 79; RESP 16; TEMP 36.4; O2SAT 97
[2024-07-14] MEDS: risperiDONE 2 MG TABLET PO ×2 (10:15→21:07)
--- NOTE | 2024-07-14 12:13 | P.CNNE_ITS ---
History of Present Illness Data of Consult Service Date: 07/14/24 Primary Care Provider: Unknown Physician HPI Reason for consult: Hypersomnia 29 years old man who apparently has past medical history of psychotic disorder from [place] [facility] with medical records not available at this time was admitted on psychiatric floor. I was asked to see for his tendency to sleep all the time. In addition, he had some ?brain injury? this consultation was about that. Patient stated that he did not have any trouble and he was not sleeping all the time though he was noted to be in his bed or asleep. He said t hat he had fallen 1 time many was hanging is close and fell hitting his head on the ground but did not pass out. It is not clear if he sought any medical attention. Apparently he carried diagnosis of obstructive sleep apnea but was not using CPAP machine. There was no history of seizure-like episodes. Review of Systems Review of Systems: Limited history is available inpatient did not volunteer any acute symptoms. No recent cold or flu-like illness PMFSH Social History Social History Household Members: Other Household Members Other:: Mother and Aunt Housing: House Do you presently have visiting nurse or other home services: No Patient Tobacco Use Status: Never used Tobacco service: No Sexual orientation: Unable to collect Meds Allergies Allergy/AdvReac Type Severity Reaction Status Date / Time mold Allergy Unknown Unknown Verified 07/10/24 20:47 amoxicillin AdvReac Severe Diarrhea Verified 07/10/24 20:47 cat hair Allergy Unknown Unknown Uncoded 07/10/24 20:47 Active Medications: Current Medications Acetaminophen (Acetaminophen 325 Mg Tablet) 650 mg PO Q6H PRN PRN Reason: Headache/Pain, Scale 1-10 Al Hydroxide/Mg Hydroxide (Magnesium Hydrox/Alum Hydrox 30 Ml Oral.Susp) 30 ml PO Q6H PRN PRN Reason: Heartburn/Nausea Chlorpromazine HCl (Chlorpromazine Hcl 25 Mg Tablet) 50 mg PO Q4H PRN PRN Reason: agitation Last Admin: 07/13/24 10:34 Dose: 50 mg Hydroxyzine HCl (Hydroxyzine Hcl 25 Mg Tablet) 25 mg PO Q6H PRN PRN Reason: mild anxiety Last Admin: 07/11/24 01:28 Dose: 25 mg Lorazepam (Lorazepam 1 Mg Tablet) 1 mg PO Q4H PRN PRN Reason: catatonia, agitation Last Admin: 07/13/24 10:34 Dose: 1 mg Lorazepam (Lorazepam 1 Mg Tablet) 1 mg PO TID [facility] Last Admin: 07/11/24 15:18 Dose: 1 mg Magnesium Hydroxide (Milk Of Magnesia 30 Ml Oral.Susp) 30 ml PO DAILY PRN PRN Reason: Constipation Nicotine Polacrilex (Nicotine Polacrilex 2 Mg Gum) 4 mg BUCCAL Q2H PRN PRN Reason: Nicotine Cravings Risperidone (Risperidone 2 Mg Tablet) 2 mg PO BID [facility] Last Admin: 07/14/24 10:15 Dose: 2 mg Trazodone HCl (Trazodone Hcl 50 Mg Tablet) 50 mg PO BEDTIME MRX1 PRN PRN Reason: Insomnia Last Admin: 07/11/24 01:28 Dose: 50 mg Home Medications ?Medication ?Instructions ?Recorded ?Confirmed ?Last Taken ?Type erenumab-aooe 70 mg/mL 70 mg subcut QMONTH 07/11/24 07/11/24 Unknown History subcutaneous auto-injector (Aimovig Autoinjector) tirzepatide (weight loss) 2.5 2.5 mg subcut QWEEK 07/11/24 07/11/24 Unknown History mg/0.5 mL subcutaneous solution (Zepbound) Physical Exam Vital Signs: Vital Signs: Last Vital Signs Temp 97.5 F 07/14/24 09:37 Pulse 79 07/14/24 09:37 Resp 16 07/14/24 09:37 BP 95/61 07/14/24 09:37 Pulse Ox 97 07/14/24 09:37 O2 Del Method Room Air 07/14/24 09:37 BMI result Body Mass Index 32.0 Neuro: Other: He is alert and awake with normal spontaneity of speech fluency comprehension and affect. When I came to his room he was lying down with eyes closed. He was able to follow commands and there was no obvious sign of confusion while he was doing that. Chin was relatively small throat was narrow and there was moderate obesity around his neck. Extraocular muscles were intact. Visual haddad are full. Face was symmetrical. There was no focal arm or leg weakness. Plantars were flexor. Deep tendon reflexes are 1+. Speech was normal. Assessment and Plan (1) Migraine: Qualifiers: Migraine type: other Status migrainosus presence: without status migrainosus Intractability: not intractable Qualified Code(s): G43.809 - Other migraine, not intractable, without status migrainosus Status: Acute 29 years old man with underlying psychotic disorder from [place] [facility] who apparently also carried diagnosis of obstructive sleep apnea but was not using CPAP machine. He described an episode of falling that might have involve level 1 concussion. Headache were likely migraine type. Untreated obstructive sleep apnea can cause daytime hypersomnia and fatigue. If he was going to stay here, I would suggest obtaining his medical records for better understanding of his conditions. If significant obstructive sleep apnea was found, best weight or treat would be CPAP. This type of treatment can help alleviate daytime hypersomnia. For headaches, he may continue his injectable medicine and could utilize sumatriptan 50 mg as needed. (2) Obstructive sleep apnea: Status: Acute (3) Hypersomnia: Status: Acute Procedures Date of Service Date of Service: 07/14/24
--- NOTE | 2024-07-14 12:53 | HO.PSYCHPN ---
Subjective Subjective Date of Service: 07/14/24 Reason For Visit: Unspecified Psychosis Interim History: in bed asleep, rousable to loud voice. denies any problems. no questions or concerns. seems content to fall back asleep. per staff, 12b up [address]. +RIS. taking meds. pushed and kicked doors yesterday. took PRNs. refused to answer check-in questions. yelling in his sleep. slept 8 hours. Mental Status Exam Mental Status Exam Narrative: obese, somnolent. lying in bed, rousable to loud voice. adequately dressed and groomed. superficially cooperative. speech terse and sparse. thoughts linear and logical when pt responds. affect constricted, hypo-intense, non-labile. mood not assessed. no SI/SIBI/HI/AVH expressed. Diagnostics Vital Signs (24Hr): Vital Signs - 24 hr 07/13/24 20:15 07/14/24 09:37 Temperature 98.2 F 97.5 F Pulse Rate 71 79 Respiratory Rate 18 16 Blood Pressure 106/51 L 95/61 Pulse Oximetry 95 97 Oxygen Delivery Method Room Air Room Air BMI result Body Mass Index 32.0 Medications Medications Current Medications Acetaminophen (Acetaminophen 325 Mg Tablet) 650 mg PO Q6H PRN PRN Reason: Headache/Pain, Scale 1-10 Al Hydroxide/Mg Hydroxide (Magnesium Hydrox/Alum Hydrox 30 Ml Oral.Susp) 30 ml PO Q6H PRN PRN Reason: Heartburn/Nausea Chlorpromazine HCl (Chlorpromazine Hcl 25 Mg Tablet) 50 mg PO Q4H PRN PRN Reason: agitation Last Admin: 07/13/24 10:34 Dose: 50 mg Hydroxyzine HCl (Hydroxyzine Hcl 25 Mg Tablet) 25 mg PO Q6H PRN PRN Reason: mild anxiety Last Admin: 07/11/24 01:28 Dose: 25 mg Lorazepam (Lorazepam 1 Mg Tablet) 1 mg PO Q4H PRN PRN Reason: catatonia, agitation Last Admin: 07/13/24 10:34 Dose: 1 mg Lorazepam (Lorazepam 1 Mg Tablet) 1 mg PO TID ELAN Last Admin: 07/11/24 15:18 Dose: 1 mg Magnesium Hydroxide (Milk Of Magnesia 30 Ml Oral.Susp) 30 ml PO DAILY PRN PRN Reason: Constipation Nicotine Polacrilex (Nicotine Polacrilex 2 Mg Gum) 4 mg BUCCAL Q2H PRN PRN Reason: Nicotine Cravings Risperidone (Risperidone 2 Mg Tablet) 2 mg PO BID ELAN Last Admin: 07/14/24 10:15 Dose: 2 mg Trazodone HCl (Trazodone Hcl 50 Mg Tablet) 50 mg PO BEDTIME MRX1 PRN PRN Reason: Insomnia Last Admin: 07/11/24 01:28 Dose: 50 mg Allergies Allergies Allergy/AdvReac Type Severity Reaction Status Date / Time mold Allergy Unknown Unknown Verified 07/10/24 20:47 amoxicillin AdvReac Severe Diarrhea Verified 07/10/24 20:47 cat hair Allergy Unknown Unknown Uncoded 07/10/24 20:47 Assessment & Plan Assessment & Plan (1) Migraine: Qualifiers: Migraine type: other Status migrainosus presence: without status migrainosus Intractability: not intractable Qualified Code(s): G43.809 - Other migraine, not intractable, without status migrainosus Status: Acute Code(s): G43.909 - Migraine, unspecified, not intractable, without status migrainosus Assessment and Plan: 29 years old man with underlying psychotic disorder from [place] [facility] who apparently also carried diagnosis of obstructive sleep apnea but was not using CPAP machine. He described an episode of falling that might have involve level 1 concussion. Headache were likely migraine type. Untreated obstructive sleep apnea can cause daytime hypersomnia and fatigue. If he was going to stay here, I would suggest obtaining his medical records for better understanding of his conditions. If significant obstructive sleep apnea was found, best weight or treat would be CPAP. This type of treatment can help alleviate daytime hypersomnia. For headaches, he may continue his injectable medicine and could utilize sumatriptan 50 mg as needed. (2) Obstructive sleep apnea: Status: Acute Code(s): G47.33 - Obstructive sleep apnea (adult) (pediatric) (3) Hypersomnia: Status: Acute Code(s): G47.10 - Hypersomnia, unspecified (4) Psychotic disorder: Status: Acute Code(s): F29 - Unspecified psychosis not due to a substance or known physiological condition Plan 07/11: continue ativan 1 TID for now. attempt proper medication reconciliation. collect collateral from family. 07/12: ativan stopped due to sedation. more active last night and today. denies any mood concerns or SI. somnolent but not catatonic. amenable to neuro consult. acknowledges hypersomnia. 07/13: slept only 4 hours, +RIS. refusing to engage in discussion of mental health and Tx. informed antipsychotics would be prescribed. risperidone 2 BID started. afterward pt aggressively hitting exit doors; was reported to have been pushing on them in the past 24H as well. case discussed with pt's aunt magdaleno, who holds HCP (which has neither been invoked nor affirmed to this continuity writer's knowledge). magdaleno reports she is pt's municipal court judge for the past year since his mother and will forward relevant medical records and contact information to team. she believes pt does poorly on antipsychotics and opposes them for pt. she supports the use of ativan. neuro consult re mgmt of hypersomnolence and GUIDO in s/p TBI patient pending. 07/14: case d/w neuro, who feels pt's injuries make only for a potential concussion Dx rather than a TBI Dx. Dr. Walls felt daytime sleepiness related to untreated MARTINA and recommended GUIDO remedies. pt remains hypersomnolent and not engaged. continue risperidone. offer CPAP. awaiting collateral from aunt magdaleno. Reason for continued inpatient stay Substantial Risk for: inability to function Time Spent With Patient Time: Total time managing care of this patient today __35__ minutes.
[2024-07-14 21:05] VITALS: BP 128/81; PULSE 118; RESP 18; TEMP 36.9; O2SAT 96
[2024-07-14] MEDS: LORazepam 1 MG TABLET PO (21:07)
--- NOTE | 2024-07-15 00:40 | PC.NURSE ---
Ronak had a C-pap ordered to start tonight however after speaking with the Respiratory therapist Idris we determined that the patient had not had a sleep study completed yet. Therefore the C-pap was held for tonight. The treatment team will be notified in the morning of the C-pap being held and the need for a sleep study to be completed
[2024-07-15 07:25] VITALS: BP 110/55; PULSE 76; RESP 16; TEMP 36.4; O2SAT 97
[2024-07-15] MEDS: risperiDONE 2 MG TABLET PO (09:02)
--- NOTE | 2024-07-15 14:20 | HO.PSYCHPN ---
Subjective Subjective Date of Service: 07/15/24 Reason For Visit: Unspecified Psychosis Interim History: able to come for interview with encouragement. denies agitation after call with his aunt last night. states his mood is not bad, denies SI/SIBI/HI/AVH. spontaneously says, Life, thank you. unable to reasonably explain why he would say that out loud. incr CLOTILDE. per staff, withdrawn, guarded. +meds. +anxiety. constricted. slept 6.5 hours. Mental Status Exam Mental Status Exam Narrative: obese, somnolent. lying in bed, rousable to loud voice. adequately dressed and groomed. superficially cooperative. speech terse and sparse. thoughts vague and lacking in content. spontaneously bizarre. affect flexible, normo-intense, non-labile. mood not bad. you? denies SI/SIBI/HI/AVH. Diagnostics Vital Signs (24Hr): Vital Signs - 24 hr 07/14/24 21:05 07/15/24 07:25 Temperature 98.4 F 97.5 F Pulse Rate 118 H 76 Respiratory Rate 18 16 Blood Pressure 128/81 110/55 L Pulse Oximetry 96 97 Oxygen Delivery Method Room Air Room Air BMI result Body Mass Index 32.0 Medications Medications Current Medications Acetaminophen (Acetaminophen 325 Mg Tablet) 650 mg PO Q6H PRN PRN Reason: Headache/Pain, Scale 1-10 Al Hydroxide/Mg Hydroxide (Magnesium Hydrox/Alum Hydrox 30 Ml Oral.Susp) 30 ml PO Q6H PRN PRN Reason: Heartburn/Nausea Chlorpromazine HCl (Chlorpromazine Hcl 25 Mg Tablet) 50 mg PO Q4H PRN PRN Reason: agitation Last Admin: 07/13/24 10:34 Dose: 50 mg Hydroxyzine HCl (Hydroxyzine Hcl 25 Mg Tablet) 25 mg PO Q6H PRN PRN Reason: mild anxiety Last Admin: 07/11/24 01:28 Dose: 25 mg Lorazepam (Lorazepam 1 Mg Tablet) 1 mg PO Q4H PRN PRN Reason: catatonia, agitation Last Admin: 07/14/24 21:07 Dose: 1 mg Lorazepam (Lorazepam 1 Mg Tablet) 1 mg PO TID ELAN Last Admin: 07/11/24 15:18 Dose: 1 mg Magnesium Hydroxide (Milk Of Magnesia 30 Ml Oral.Susp) 30 ml PO DAILY PRN PRN Reason: Constipation Nicotine Polacrilex (Nicotine Polacrilex 2 Mg Gum) 4 mg BUCCAL Q2H PRN PRN Reason: Nicotine Cravings Risperidone (Risperidone 2 Mg Tablet) 4 mg PO BEDTIME ELAN Trazodone HCl (Trazodone Hcl 50 Mg Tablet) 50 mg PO BEDTIME MRX1 PRN PRN Reason: Insomnia Last Admin: 07/11/24 01:28 Dose: 50 mg Allergies Allergies Allergy/AdvReac Type Severity Reaction Status Date / Time mold Allergy Unknown Unknown Verified 07/10/24 20:47 amoxicillin AdvReac Severe Diarrhea Verified 07/10/24 20:47 cat hair Allergy Unknown Unknown Uncoded 07/10/24 20:47 Assessment & Plan Assessment & Plan (1) Migraine: Qualifiers: Migraine type: other Status migrainosus presence: without status migrainosus Intractability: not intractable Qualified Code(s): G43.809 - Other migraine, not intractable, without status migrainosus Status: Acute Code(s): G43.909 - Migraine, unspecified, not intractable, without status migrainosus Assessment and Plan: 29 years old man with underlying psychotic disorder [facility] [place] [facility] who apparently also carried diagnosis of obstructive sleep apnea but was not using CPAP machine. He described an episode of falling that might have involve level 1 concussion. Headache were likely migraine type. Untreated obstructive sleep apnea can cause daytime hypersomnia and fatigue. If he was going to stay here, I would suggest obtaining his medical records for better understanding of his conditions. If significant obstructive sleep apnea was found, best weight or treat would be CPAP. This type of treatment can help alleviate daytime hypersomnia. For headaches, he may continue his injectable medicine and could utilize sumatriptan 50 mg as needed. (2) Obstructive sleep apnea: Status: Acute Code(s): G47.33 - Obstructive sleep apnea (adult) (pediatric) (3) Hypersomnia: Status: Acute Code(s): G47.10 - Hypersomnia, unspecified (4) Psychotic disorder: Status: Acute Code(s): F29 - Unspecified psychosis not due to a substance or known physiological condition Plan 07/11: continue ativan 1 TID for now. attempt proper medication reconciliation. collect collateral from family. 07/12: ativan stopped due to sedation. more active last night and today. denies any mood concerns or SI. somnolent but not catatonic. amenable to neuro consult. acknowledges hypersomnia. 07/13: slept only 4 hours, +RIS. refusing to engage in discussion of mental health and Tx. informed antipsychotics would be prescribed. risperidone 2 BID started. afterward pt aggressively hitting exit doors; was reported to have been pushing on them in the past 24H as well. case discussed with pt's aunt magdaleno, who holds HCP (which has neither been invoked nor affirmed to this junior copywriter's knowledge). magdaleno reports she is pt's physician practice administrator for the past year since his mother and will forward relevant medical records and contact information to team. she believes pt does poorly on antipsychotics and opposes them for pt. she supports the use of ativan. neuro consult re mgmt of hypersomnolence and GUIDO in s/p TBI patient pending. 07/14: case d/w neuro, who feels pt's injuries make only for a potential concussion Dx rather than a TBI Dx. Dr. Walls felt daytime sleepiness related to untreated MARTINA and recommended GUIDO remedies. pt remains hypersomnolent and not engaged. continue risperidone. offer CPAP. awaiting collateral from aunt magdaleno. 07/15: vague and empty responses. spontaneously bizarre. unable to account for why he doesn't use CPAP at home. ambivalent. remains hypersomnolent, taking meds. risperidone changed from 2 BID to 4 QHS. Reason for continued inpatient stay Substantial Risk for: inability to function and rapid decompensation Time Spent With Patient Time: Total time managing care of this patient today __35__ minutes.
[2024-07-15] MEDS: risperiDONE 2 MG TABLET 4 MG PO (20:47)
[2024-07-15 23:07] VITALS: RESP 20
[2024-07-16 07:44] VITALS: BP 117/78; PULSE 91; RESP 16; TEMP 36.7; O2SAT 96
--- NOTE | 2024-07-16 10:24 | PM.PSYDC ---
DS: Providers Provider Date of Service: 07/16/24 Date of admission: 07/11/24 00:34 Date of discharge: 07/16/24 Primary care physician: Unknown Physician Consults: 07/11/24 01:00 Consult to Hospitalist Routine Comment: Consulting Provider: [facility] Reason For Exam: Transfer pt 07/12/24 19:49 Consult to Neurology Routine Consulting Provider: [facility] Reason for consultation: mgmt hypersom & GUIDO s/p TBIs (also MARTINA); psychosis with catatonia comorbid Has provider been notified: No DS: Diagnosis Discharge Diagnosis (1) Migraine: Status: Acute (2) Obstructive sleep apnea: Status: Acute (3) Hypersomnia: Status: Acute (4) Psychotic disorder: Status: Acute DS: Medications Discharge Medications Home Medications: Home Medications ?Medication ?Instructions ?Recorded ?Confirmed erenumab-aooe 70 mg/mL 70 mg subcut QMONTH 07/11/24 07/11/24 subcutaneous auto-injector (Aimovig Autoinjector) tirzepatide (weight loss) 2.5 2.5 mg subcut QWEEK 07/11/24 07/11/24 mg/0.5 mL subcutaneous solution (Zepbound) Previous Rx's ?Medication ?Instructions ?Recorded risperidone 2 mg tablet 2 mg PO BEDTIME 30 days #30 tabs 07/16/24 Mental Status Exam Mental Status Exam Narrative: obese, somnolent. lying in bed, rousable to voice. adequately dressed and groomed. cooperative. speech terse and sparse. thoughts concrete. constricted, normo-intense, non-labile. mood not bad, actually. denies SI/SIBI/HI/AVH. Data Data Completed and Pending Completed studies during hospitalization [Text1]: 07/11/24 07/11/24 10:51 14:20 Estimat Average Glucose 97 Hemoglobin A1c % 5.0 Magnesium 2.1 Triglycerides 159 H Cholesterol 122 LDL Cholesterol, Calc 69 HDL Cholesterol 22 L Vitamin B12 311 Folate 6.6 TSH 0.96 Free T4 1.16 DS: Summary Hospital Course Hospital Course: per 07/11 admission note: HPI Narrative: on attempted interview, pt was very somnolent. he stated he would come out in ten minutes to meet with MD but never appeared. the history herein contained was garnered from OSH documents. per OSH records, pt with h/o catatonia, TBI, PTSD presented due to concern for episode with catatonic features. pt was BIB police after having been found wandering the streets. EMS reported that a concerned bystander called 911. EMS stated that pt threw himself in the street and stated he wanted to . h/o catatonia effectively treated with ativan. reportedly schizophrenia Dx and numerous anti-psychotic trials. pt was described as near catatonic in the OSH ED, as well as responding to internal stimuli. he was suspected of not recently taking his psychiatric medications. labs at OSH were reported to be overall without concerning abnormalities. CK not elevated, serum tox screen NEG. utox collected but not reported. Past Psychiatric History: reportedly experiencing psychosis as of 07/26/2020. h/o TBI 07/12/2016. hosps: h/o at least one prior hosp SA: unknown SIB: unknown outpt: unknown Medical Evaluation Reviewed: Hospitalist B[facility]baraal Pending [facility] Narrative: HTN s/p TBI 07/12/2016 dyspepsia Family History: no documented mental health or substance use disorder FH Social History: single, never , no children. lives in [place] with mother and aunt. completed 2 years at [employer]. not employed. heterosexual. Substance History: has denied nicotine and alcohol use. h/o social drinking prior to TBI in July of 2016. has reported no other drug use. Trauma History: unknown Precis: per neuro consult: 29 years old man with underlying psychotic disorder [facility] who apparently also carried diagnosis of obstructive sleep apnea but was not using CPAP machine. He described an episode of falling that might have involve level 1 concussion. Headache were likely migraine type. Untreated obstructive sleep apnea can cause daytime hypersomnia and fatigue. If he was going to stay here, I would suggest obtaining his medical records for better understanding of his conditions. If significant obstructive sleep apnea was found, best weight or treat would be CPAP. This type of treatment can help alleviate daytime hypersomnia. For headaches, he may continue his injectable medicine and could utilize sumatriptan 50 mg as needed. 07/11: continue ativan 1 TID for now. attempt proper medication reconciliation. collect collateral from family. 07/12: ativan stopped due to sedation. more active last night and today. denies any mood concerns or SI. somnolent but not catatonic. amenable to neuro consult. acknowledges hypersomnia. 07/13: slept only 4 hours, +RIS. refusing to engage in discussion of mental health and Tx. informed antipsychotics would be prescribed. risperidone 2 BID started. afterward pt aggressively hitting exit doors; was reported to have been pushing on them in the past 24H as well. case discussed with pt's aunt magdaleno, who holds HCP (which has neither been invoked nor affirmed to this customs entry writer's knowledge). magdaleno reports she is pt's pomologist for the past year since his mother and will forward relevant medical records and contact information to team. she believes pt does poorly on antipsychotics and opposes them for pt. she supports the use of ativan. neuro consult re mgmt of hypersomnolence and GUIDO in s/p TBI patient pending. 07/14: case d/w neuro, who feels pt's injuries make only for a potential concussion Dx rather than a TBI Dx. Dr. Walls felt daytime sleepiness related to untreated MARTINA and recommended GUIDO remedies. pt remains hypersomnolent and not engaged. continue risperidone. offer CPAP. awaiting collateral from aunfermín dolan. 07/15: vague and empty responses. spontaneously bizarre. unable to account for why he doesn't use CPAP at home. ambivalent. remains hypersomnolent, taking meds. risperidone changed from 2 BID to 4 QHS. no collateral yet provided by aunfermín dolan. 07/16: 12b up, pt declines to sign in. fax received from aunt magdaleno containing only HCP paperwork for patient, no medical records or other collateral. pt reportedly vomited last evening in the [place] and fell, or more slid to the floor. slide was witnessed, no injury reported. pt denied any safety concerns or psychotic Sx today. risperidone dosing decreased to 2 mg QHS due to aunt's report of increased frequency of falls with anti-psychotic medication. meds reviewed, reconciled, prescribed. not committable at present. discharged to aunt's home as per plan. Time Spent with Patient Time attestation: Total time managing care of this patient today _35___ minutes. Discharge Plan Discharge Anticipated Discharge Date/Time: 07/16/24 12:00 Patient Disposition: Home, Self-Care Discharge Diagnosis: s/p TBI Psychotic Disorder NOS Hypersomnolence MARTINA Referrals: Tristen ([facility]) [Other] - 1 Week (Follow up with Tristen when discharged. ) [facility] [Provider Group] - 1 Week (We do not have your pcp information or release of information. This local clinic has walk in hours Sunday through Sunday 830-4. Please call [phone] to schedule a follow up appt within 7-10 days of discharge.) Discharge Medications: New risperidone 2 mg Tablet 2 mg PO BEDTIME 30 Days Qty: 30 0RF Continued Aimovig Autoinjector 70 mg/mL auto-injector 70 mg SUBCUT QMONTH Zepbound 2.5 mg/0.5 mL Solution 2.5 mg SUBCUT QWEEK Discharge Orders: Discharge Order (Routine); Ordered 07/16/24 Ordered By: Alexei Haji Diet: Advance to usual diet Activity on Discharge: As tolerated Stand Alone Forms: Patient Portal Discharge page, Community Support Print Language: Hungarian Care Plan Goals: remain safe and stable in the outpatient treatment setting Health Concerns: migraine GUIDO s/p TBI Plan of Treatment: take medications as prescribed Assessment: not at imminent risk of harm to self or others Discharge Date/Time: 07/16/24 11:19
== END 2024-07-16 11:19 | disposition home or self-care (01) | DRG 885 ==
PROVIDERS: Clinical Nurse Specialist Psychiatric/Mental Health, Adult; Admitting Provider Psychiatry & Neurology Psychiatry; Visit Provider Psychiatry & Neurology Psychiatry
DX: F29 Unspecified psychosis not due to a substance or known physiological condition (principal); G47.33 Obstructive sleep apnea (adult) (pediatric); G47.10 Hypersomnia, unspecified; G43.809 Other migraine, not intractable, without status migrainosus; S06.9XAS Unspecified intracranial injury with loss of consciousness status unknown, sequela; X58.XXXS Exposure to other specified factors, sequela; Z79.899 Other long term (current) drug therapy
CPT/HCPCS: 36415; 80061; 82607; 82746; 83036; 83735; 84439; 84443; 94660

== ENCOUNTER → 2024-07-11 00:34 | Outpatient (BNV) | payer MEDICARE, SELFPAY | PROVIDERS: Admitting Provider Psychiatry & Neurology Psychiatry; Visit Provider Psychiatry & Neurology Neurology | DX: G43.809 Other migraine, not intractable, without status migrainosus (principal); G47.33 Obstructive sleep apnea (adult) (pediatric); G47.10 Hypersomnia, unspecified | CPT/HCPCS: 99222 ==

== ENCOUNTER → 2024-07-11 00:34 | Outpatient (BNV) | payer MEDICARE, SELFPAY | PROVIDERS: Admitting Provider Psychiatry & Neurology Psychiatry; Visit Provider Psychiatry & Neurology Psychiatry | DX: F29 Unspecified psychosis not due to a substance or known physiological condition (principal); G43.809 Other migraine, not intractable, without status migrainosus; G47.33 Obstructive sleep apnea (adult) (pediatric); G47.10 Hypersomnia, unspecified | CPT/HCPCS: 90792; 99232; 99239 ==

== ENCOUNTER → 2024-07-11 00:34 | Outpatient (BNV) | payer MEDICARE, SELFPAY | PROVIDERS: Admitting Provider Psychiatry & Neurology Psychiatry; Visit Provider Student in an Organized Health Care Education/Training Program | DX: Z00.8 Encounter for other general examination (principal) | CPT/HCPCS: 99222 ==